=== PATIENT | female | born 1985 ===

== ENCOUNTER → 2017-03-26 | Outpatient (CLI) | payer BC ==
[2017-04-03 18:05] LABS: HPV 16 RNA NOT DETECTED (NOT DETECTED); HPV 18 45 RNA NOT DETECTED (NOT DETECTED)
== END | disposition home or self-care (01) ==
LOC: C.PAPS 09:50
PROVIDERS: ATTEND Physician Assistant
DX: Z01.419 Encounter for gynecological examination (general) (routine) without abnormal findings (principal)

== ENCOUNTER 2019-03-11 07:45 | Inpatient (IN) ==
[2019-03-11] MEDS ORDERED: PENICILLIN G POTASSIUM 6 MU in DEXTROSE 5% 250 ML IV STA (08:03)
[2019-03-11] MEDS ORDERED: OXYTOCIN 30 UNITS/500 ML BAG IV PRN ×2 (08:03→08:13)
--- NOTE | 2019-03-11 08:24 | History & Physical Report ---
Date of Service March 11, 2019 Assessment & Plan (1) Post-term , 40-42 weeks of gestation: 34 year old at 40 weeks and 6 days here for induction of labor for post dates * Vital signs reviewed WNL * Patient with reassuring FHT * Rosenthal bulb inserted last night has fallen into vagina today, removed from vagina and on cervical exam /-1 * Pitocin induction started per protocol * Bloody type AB+, Rubella immune * GBS + no drug allergies, giving penicillin * NPO * Anticipate History of Present Illness Primary Care Provider: NO PCP Akila James is a 34 year old who is here for induction of labor at 40 weeks 6 days for post dates. She tells me she started to feel more painful spaced contractions about 10 minutes apart last night after placement of rosenthal b ulb, but she had not been experiencing contractions prior to that. She has consistently felt good movement, has not noted any vaginal bleeding or fluid loss until last night, after placement of rosenthal bulb she noted small amount of vaginal bleeding. She denies any headache, vision changes or swelling of hands or feet. This is her first , it has been complicated by being GBS positive and GERD. She has been taking prilosec, vitamins and iron this . Blood type is AB+, Patient is GBS +, Rubella Immune. All other serologic testing normal. At last appointment yesterday patient was found to be closed 80% effaced and -2 station on cervical exam. On review of systems, patient has no fevers, chills, difficulty breathing, chest pain, edema, abdominal pain, nausea or vomiting, headache, or visual disturbances. Akila tells me she has no major medical history and takes no medication outside of . She does not smoke cigarettes, use alcohol, or use any other recreational drugs. She lives with her the father of the baby here in [place] and is a track repair worker. No other questions or concerns Allergies Allergy/AdvReac Type Severity Reaction Status Date / Time No Known Allergies Allergy Verified 03/11/19 08:20 Home Medications Home Medications Medication Instructions Recorded Confirmed Type ferrous sulfate [iron] 325 mg PO DAILY 03/10/19 03/11/19 History omeprazole magnesium [Prilosec] 10 mg PO DAILY 03/10/19 03/11/19 History vit no.[id number] 1 tab PO DAILY 03/10/19 03/11/19 History [ Vitamin] Patient History Medical History H/O wisdom tooth extraction Social History Preferred Language: Norwegian Communication Ability: Effective Beliefs That Will Affect Care: None marital status: Current Living Situation: Spouse Other Information That Helps Us Care for You: No Feels Safe at Home: Yes Safety Concerns: Feels Safe At This Time Smoking Status: Never smoker Hx Alcohol Use: No Hx Substance Use: No Physical Exam Constitutional: well developed and well nourished; no acute distress Respiratory: normal respiratory effort, lungs clear to auscultation Cardiovascular: Rate/Rhythm: regular rate and regular rhythm Extremities: + edema (very mild pedal edema); no calf tenderness Gastrointestinal (Abdomen): Gravid uterus distending abdomen, soft (around uterus) and nontender Skin: no rashes, warm and dry Neurologic: Brisk reflexes bilaterally Genitourinary: On pelvic exam rosenthal balloon was found to be resting in vagina. Balloon deflated and removed, cervical check showed 4 cm dilation, 75% effaced, and -1 station. Results & Data Vital Signs (Past 12 Hours) Vital Signs Temp Pulse Resp BP 03/11/19 07:56 36.5 C 78 20 116/73 Supervising Physician Co-Signing Physician Notes Resident Physician Supervision Note: I was present with Dr. Sams during the history and exam. I discussed the case with the resident and agree with the findings and plan as documented in the note. Any exceptions or clarifications are listed here: will start pit, efw 7- 8#. fhts categ 1. gbs pos, start pcn. Documented By: Marta Walsh MD, FACOG Resident Activity Tracking Resident Involvement: Resident Care Provided Care Provided: OB Delivery
[2019-03-11 08:32] LABS: Hematocrit (blood only) 34.5 % (37-47); Hemoglobin 12.3 g/dL (12.0-16.0); Mean Corpuscular Volume 92.5 fL (80-100); Mean Platelet Volume 9.1 fL (7.4-10.4); Platelet Count 192 K/uL (130-400); RDW Coefficient of Variation 12.8 % (11.5-14.5); RDW Standard Deviation 43.4 fL (36.4-46.3); Red Blood Count 3.73 M/uL (4.2-5.4); White Blood Count 11.87 K/uL (4.8-10.8)
[2019-03-11] MEDS: LACTATED RINGER'S 1,000 ML IV PRN ×2 (08:42→12:47)
[2019-03-11 09:01] LABS: Mean Corpuscular Hgb Conc 35.7 g/dL (32-36)
[2019-03-11] MEDS ORDERED: PENICILLIN G POTASSIUM 3 MU in DEXTROSE 5% 100 ML IV PRN (12:00)
[2019-03-11] MEDS ORDERED: BUPIVACAINE 0.25% 30 ML VIAL ONE (12:07)
[2019-03-11] MEDS ORDERED: ePHEDrine sulfate 50 MG/ML AMP ONE (12:07)
[2019-03-11] MEDS ORDERED: fentaNYL citrate 100 MCG/2 ML VIAL ONE (12:08)
[2019-03-11] MEDS ORDERED: fentaNYL 2MCG/ML ROPIV 1.25MG/ML 100 ML BAG EPI ONE (12:08)
--- NOTE | 2019-03-11 12:41 | Anesthesiology Consultation ---
Date of Service March 11, 2019 Assessment & Plan (1) Encounter for pre-operative examination: Chart Review Chart Review: Patient NOT seen in Pre Admission Testing and Acceptable Risk for Labor Epidural Consults Requested none ASA ASA2 Proposed Anesthesia Anesthesia Type: Labor Epidural Risk / Benefits Reviewed With: PT / POA / Parent / Guardian, Accepts Plan and Informed Consent Obtained History Height/Weight Height: 5 ft 5 in Weight: 74.843 kg Allergies Allergy/AdvReac Type Severity Reaction Status Date / Time No Known Allergies Allergy Verified 03/11/19 08:20 Medications Home Medications Medication Instructions Recorded Confirmed Last Taken ferrous sulfate [iron] 325 mg PO DAILY 03/10/19 03/11/19 03/09/19 22:00 omeprazole magnesium [Prilosec] 10 mg PO DAILY 03/10/19 03/11/19 03/11/19 06:00 vit no.[id number] 1 tab PO DAILY 03/10/19 03/11/19 03/09/19 22:00 [ Vitamin] Active Medications Generic Name Dose Route Start Last Admin Trade Name Freq PRN Reason Stop Dose Admin Lactated Ringer's 1,000 mls @ 125 mls/hr 03/11/19 08:03 03/11/19 12:47 Lr IV 03/13/19 08:02 125 mls/hr .Q8H PRN Administration L&D Protocol Protocol Oxytocin 30 units in 500 mls @ 7 mls/hr 03/11/19 08:13 03/11/19 12:00 Pitocin IV 03/13/19 08:12 0.42 units/hr .Q24H PRN 7 mls/hr Labor Induction/Augmentation Titration Protocol 0.42 UNITS/HR NPO Date Last Intake of Fluids: 03/11/19 Time Last Intake of Fluids: 13:08 Date Last Intake of Solids: 03/11/19 Time Last Intake of Solids: 07:30 Past Medical History Medical History H/O gastroesophageal reflux (GERD) Scoliosis Exercise / Class Metabolic Activity II 4-5 Yardwork/Stairs/Walk up hill Past Surgical History Surgical History H/O wisdom tooth extraction Past Anesthesia History No Hx of Anesthesia Complications History of PONV No Hx of PONV and No Hx of Motion Sickness Social History Smoking Status: Never smoker Hx Alcohol Use: No Hx Substance Use: No Review of Systems Patient denies active symptoms of GERD. Patient denies numbness, tingling or weakness in lower extremities. Patient denies history of abnormal bleeding or bleeding disorder. Patient denies active use of anticoagulants other than low dose aspirin. Physical Exam Vital Signs Last Vital Signs Temp 36.8 C 03/11/19 11:11 Pulse 81 03/11/19 13:05 Resp 20 03/11/19 11:11 BP 109/56 L 03/11/19 13:05 Pulse Ox 98 03/11/19 13:02 Constitutional not obese gravid uterus ENMT Mouth: no TMJ abnormality and oral opening not small Thyromental Distance: > or= 3.5 Finger Breadths Mallampati Class: II Neck normal visual inspection; neck extension not limited Respiratory normal respiratory effort Auscultation: lungs clear to auscultation bilaterally Cardiovascular Rate/Rhythm: regular rate and regular rhythm Heart Sounds: no murmur Neurologic moves all extremities Motor/Sensory: no sensory deficit Psychiatric Orientation: alert and oriented x 3 Testing Laboratory Results 03/11/19 08:20
[2019-03-11] MEDS ORDERED: NALBUPHINE HCL INJ 10 MG/ML AMP IV PRN ×2 (13:11→17:57)
[2019-03-11] MEDS ORDERED: ePHEDrine sulfate 50 MG/ML AMP IV PRN ×2 (13:11→17:57)
[2019-03-11] MEDS ORDERED: NALOXONE HCL 0.4 MG/1 ML VIAL/CARP IV PRN ×2 (13:11→17:57)
[2019-03-11] MEDS ORDERED: ONDANSETRON INJ 2 MG/ML 2 ML VIAL IV PRN ×2 (13:11→17:57)
[2019-03-11] MEDS ORDERED: fentaNYL 2MCG/ML ROPIV 1.25MG/ML 100 ML BAG EPI PRN (13:11)
[2019-03-11] MEDS ORDERED: DiphenhydrAMINE HCL 50 MG/ML VIAL IV PRN ×2 (13:11→17:57)
[2019-03-11] MEDS ORDERED: NALOXONE HCL 1 MG in SODIUM CHLORIDE 0.9% 1000ML 1,000 ML IV PRN ×2 (13:11→17:57)
--- NOTE | 2019-03-11 14:06 | Labor Progress Brief Note ---
Date of Service March 11, 2019 Subjective CTSP secondary to decels. Has had epidural about 50 min. Had been flipped, pit off, fluid bolus and oxygen. Assessment & Plan (1) Post-term , 40-42 weeks of gestation: Baby has recovered and now just having variable/early with contractions. Will continue to monitor closely. Could consider amnioinfusion if variables persistent/deep. Physical Exam Constitutional: WD/WN, vitals as above Genitourinary: cx--5/90/-2 arom--min clear toco--q1-3min, pit was at 7, off now efm--was having decels in 80s that have resolved to having variables with contractions, baseline of 130s, mod variability, +scalp stim. Results & Data Vital Signs (Past 12 Hours) Vital Signs Temp Pulse Resp BP Pulse Ox 03/11/19 14:02 70 100 03/11/19 13:58 68 103/57 L 03/11/19 13:57 69 100 03/11/19 13:53 72 89/53 L 03/11/19 13:52 74 100 03/11/19 13:47 77 112/68 99 03/11/19 13:42 75 104/61 96 03/11/19 13:38 76 110/65 03/11/19 13:37 79 97 03/11/19 13:32 69 103/57 L 96 03/11/19 13:27 74 106/60 97 03/11/19 13:22 83 105/61 98 03/11/19 13:17 83 112/58 L 97 03/11/19 13:15 90 107/58 L 03/11/19 13:13 83 112/56 L 03/11/19 13:12 86 97 03/11/19 13:11 84 110/56 L 03/11/19 13:09 86 114/59 L 03/11/19 13:07 86 111/56 L 97 03/11/19 13:05 81 109/56 L 03/11/19 13:03 84 111/57 L 03/11/19 13:02 84 98 03/11/19 13:01 88 119/64 03/11/19 12:59 88 20 128/75 03/11/19 12:57 83 127/73 97 03/11/19 12:52 69 100 03/11/19 12:47 80 97 03/11/19 12:42 69 100 03/11/19 11:11 36.8 C 58 L 20 141/83 H 03/11/19 10:16 56 L 125/77 03/11/19 09:10 79 118/69 03/11/19 08:08 36.5 C 78 20 116/73 03/11/19 07:56 36.5 C 78 20 116/73
[2019-03-11] MEDS ORDERED: CITRIC ACID/SODIUM CITRATE 15 ML UDC ONE (15:56)
[2019-03-11] MEDS ORDERED: LIDOCAINE/EPINEPHRINE 2% 1:200,000 20 ML SDV ONE (15:57)
[2019-03-11] MEDS ORDERED: CEFAZOLIN 2000MG 2,000 MG/15 ML SYR IV SCH (16:00)
[2019-03-11] MEDS ORDERED: LACTATED RINGER'S 1,000 ML IV SCH ×3 (16:00→21:24)
[2019-03-11] MEDS ORDERED: CITRIC ACID/SODIUM CITRATE 15 ML UDC PO SCH (16:00)
--- NOTE | 2019-03-11 16:03 | Labor Progress Brief Note ---
Date of Service March 11, 2019 Subjective comfortable Assessment & Plan (1) Non-reassuring electronic monitoring tracing: long decel that took a long time to recover. Baby had been having early/variables. this is the second time this has occurred. Contractions feel strong and baby really pushes down with contraction. We are still quite far from delivery. No change in the last 2 hours. Concern for tolerance of labor. discussed situation with patient and so. Recommend c/s at this point. They are agreeable. consent reviewed and signed. r/b/se discussed. Physical Exam 2 Genitourinary: cx--/-2 toco--q2-3min, pit now off, was only at 2 efm--now 125, had a likely 8min decel to the 70s, finally resolved with position change, o2, bolus Results & Data Vital Signs (Past 12 Hours) Vital Signs Temp Pulse Resp BP Pulse Ox 03/11/19 15:52 80 100 03/11/19 15:47 83 100 03/11/19 15:43 75 110/58 L 03/11/19 15:42 65 97 03/11/19 15:37 68 98 03/11/19 15:32 69 98 03/11/19 15:28 64 102/61 03/11/19 15:27 66 97 03/11/19 15:22 65 97 03/11/19 15:17 67 98 03/11/19 15:13 70 103/57 L 03/11/19 15:12 73 97 03/11/19 15:07 70 99 03/11/19 15:02 68 97 03/11/19 15:00 36.9 C 20 03/11/19 14:59 72 97/54 L 03/11/19 14:57 67 98 03/11/19 14:52 65 97 03/11/19 14:47 66 97 03/11/19 14:42 67 104/55 L 97 03/11/19 14:37 65 100 03/11/19 14:32 65 100 03/11/19 14:31 20 03/11/19 14:27 62 101/57 L 100 03/11/19 14:22 64 100 03/11/19 14:17 65 100 03/11/19 14:16 20 03/11/19 14:14 66 99/55 L 03/11/19 14:12 66 100 03/11/19 14:07 72 100 03/11/19 14:02 70 100 03/11/19 14:01 20 03/11/19 13:58 68 103/57 L 03/11/19 13:57 69 100 03/11/19 13:53 72 89/53 L 03/11/19 13:52 74 100 03/11/19 13:47 77 20 112/68 99 03/11/19 13:42 75 104/61 96 03/11/19 13:38 76 110/65 03/11/19 13:37 79 97 03/11/19 13:32 69 103/57 L 96 03/11/19 13:31 36.8 C 20 03/11/19 13:27 74 106/60 97 03/11/19 13:22 83 105/61 98 03/11/19 13:17 83 112/58 L 97 03/11/19 13:16 20 03/11/19 13:15 90 107/58 L 03/11/19 13:13 83 112/56 L 03/11/19 13:12 86 97 03/11/19 13:11 84 110/56 L 03/11/19 13:09 86 114/59 L 03/11/19 13:07 86 111/56 L 97 03/11/19 13:05 81 109/56 L 03/11/19 13:03 84 111/57 L 03/11/19 13:02 84 98 03/11/19 13:01 88 119/64 03/11/19 12:59 88 20 128/75 03/11/19 12:57 83 127/73 97 03/11/19 12:52 69 100 03/11/19 12:47 80 97 03/11/19 12:42 69 100 03/11/19 11:11 36.8 C 58 L 20 141/83 H 03/11/19 10:16 56 L 125/77 03/11/19 09:10 79 118/69 03/11/19 08:08 36.5 C 78 20 116/73 03/11/19 07:56 36.5 C 78 20 116/73
[2019-03-11] MEDS ORDERED: OXYTOCIN 10 UNITS/ML VIAL ONE ×3 (16:26→16:45)
[2019-03-11] MEDS ORDERED: MoRPHine SULFATE PF 1 MG/ML 10 ML AMP/VIAL ONE (16:31)
[2019-03-11] MEDS ORDERED: PHENYLEPHRINE 100MCG/ML 5ML SYR ONE (16:41)
[2019-03-11] MEDS ORDERED: ONDANSETRON INJ 2 MG/ML 2 ML VIAL ONE (16:41)
--- NOTE | 2019-03-11 16:57 | Post Operative Brief Note ---
Immediate Post Op Note v1 Date of Surgery March 11, 2019 Pre & Post Diagnosis Operation Date: 03/11/19 16:00 Pre-Op Diagnosis: INDUCTION- intolerance to labor- post dates Post-Op Diagnosis: INDUCTION- intolerance to labor- post dates - with delivery of living female child at 1629 Procedure Operation Date: 03/11/19 16:00 Actual Procedures p Primary low transverse Section in LD(Bilateral) - Akila Chris MD, FACOG Surgeon Akila Chris MD, FACOG Transmitter Engineer In Charge Dr. Caldwell Estimated Blood Loss 700 Findings Consistent with Post-Op Diagnosis Drains Alvarado Catheter
[2019-03-11] MEDS ORDERED: OXYTOCIN 20 UNITS in LACTATED RINGER'S 1,000 ML IV SCH (17:15)
[2019-03-11] MEDS ORDERED: MoRPHine SULFATE PF 1 MG/ML 10 ML AMP/VIAL INT SPINAL ONE (17:57)
[2019-03-11] MEDS ORDERED: HYDROmorphone INJ 0.5 MG/0.5 ML SYR IV PRN (17:57)
[2019-03-11] MEDS ORDERED: NALOXONE HCL 0.08 MG in SYRINGE 1.8 ML IV PRN (17:57)
[2019-03-11] MEDS ORDERED: LACTATED RINGER'S 500 ML IV PRN (17:57)
[2019-03-11] MEDS ORDERED: SODIUM CHLORIDE 0.9% 1000ML 1,000 ML IV SCH (18:00)
[2019-03-11] MEDS ORDERED: NO NARCOTICS OR SEDATIVES SCH (18:00)
[2019-03-11] MEDS: KETOROLAC 30 MG/ML VIAL IV PRN (18:15)
--- NOTE | 2019-03-11 18:35 | Anesthesia Procedure Note ---
Date of Service March 11, 2019 Anesthesia Post Epidural Note Vital Signs Vital Signs: Temp Pulse Resp BP Pulse Ox 03/11/19 18:32 68 98 03/11/19 18:31 68 112/63 03/11/19 18:27 68 98 03/11/19 18:22 72 98 03/11/19 18:21 67 112/67 03/11/19 18:17 69 97 03/11/19 18:12 74 97 03/11/19 18:11 69 113/65 03/11/19 18:10 20 03/11/19 18:07 73 96 03/11/19 18:02 74 97 03/11/19 18:01 75 108/57 L 03/11/19 18:00 22 03/11/19 17:57 74 96 03/11/19 17:52 78 96 03/11/19 17:51 79 105/56 L 03/11/19 17:50 20 03/11/19 17:47 79 96 03/11/19 17:42 83 95 03/11/19 17:41 82 110/65 03/11/19 17:40 20 03/11/19 17:37 81 96 03/11/19 17:32 81 96 03/11/19 17:31 80 106/58 L 03/11/19 17:27 80 95 03/11/19 17:22 75 95 03/11/19 17:20 36.6 C 73 22 100/55 L 03/11/19 17:17 72 94 03/11/19 17:15 76 104/55 L 03/11/19 17:12 76 93 03/11/19 17:10 79 18 94 03/11/19 17:07 81 95 03/11/19 17:06 82 101/59 L 03/11/19 17:03 82 108/55 L 03/11/19 17:02 82 96 03/11/19 16:07 81 100 03/11/19 16:02 78 100 03/11/19 15:58 78 123/72 03/11/19 15:57 78 100 03/11/19 15:52 80 100 03/11/19 15:47 83 100 03/11/19 15:43 75 110/58 L 03/11/19 15:42 65 97 03/11/19 15:37 68 98 03/11/19 15:32 69 98 05/29/19 15:30 18 03/11/19 15:28 64 102/61 03/11/19 15:27 66 97 03/11/19 15:22 65 97 03/11/19 15:17 67 98 03/11/19 15:13 70 103/57 L 03/11/19 15:12 73 97 03/11/19 15:07 70 99 03/11/19 15:02 68 97 03/11/19 15:00 36.9 C 20 03/11/19 14:59 72 97/54 L 03/11/19 14:57 67 98 03/11/19 14:52 65 97 03/11/19 14:47 66 97 03/11/19 14:42 67 104/55 L 97 03/11/19 14:37 65 100 03/11/19 14:32 65 100 03/11/19 14:31 20 03/11/19 14:27 62 101/57 L 100 03/11/19 14:22 64 100 03/11/19 14:17 65 100 03/11/19 14:16 20 03/11/19 14:14 66 99/55 L 03/11/19 14:12 66 100 03/11/19 14:07 72 100 03/11/19 14:02 70 100 03/11/19 14:01 20 03/11/19 13:58 68 103/57 L 03/11/19 13:57 69 100 03/11/19 13:53 72 89/53 L 03/11/19 13:52 74 100 03/11/19 13:47 77 20 112/68 99 03/11/19 13:42 75 104/61 96 03/11/19 13:38 76 110/65 03/11/19 13:37 79 97 03/11/19 13:32 69 103/57 L 96 03/11/19 13:31 36.8 C 20 03/11/19 13:27 74 106/60 97 03/11/19 13:22 83 105/61 98 03/11/19 13:17 83 112/58 L 97 03/11/19 13:16 20 03/11/19 13:15 90 107/58 L 03/11/19 13:13 83 112/56 L 03/11/19 13:12 86 97 03/11/19 13:11 84 110/56 L 03/11/19 13:09 86 114/59 L 03/11/19 13:07 86 111/56 L 97 03/11/19 13:05 81 109/56 L 03/11/19 13:03 84 111/57 L 03/11/19 13:02 84 98 03/11/19 13:01 88 119/64 03/11/19 12:59 88 20 128/75 03/11/19 12:57 83 127/73 97 03/11/19 12:52 69 100 03/11/19 12:47 80 97 03/11/19 12:42 69 100 03/11/19 11:11 36.8 C 58 L 20 141/83 H 03/11/19 10:16 56 L 125/77 03/11/19 09:10 79 118/69 03/11/19 08:08 36.5 C 78 20 116/73 03/11/19 07:56 36.5 C 78 20 116/73 Pain Intensity Abdomen: Pain Intensity: 5 Notes Mental Status: alert / awake / arousable and participated in evaluation Nausea / Vomiting: adequately controlled Pain: adequately controlled Airway Patency, RR, SpO2: stable & adequate BP & HR: stable & adequate Hydration State: stable & adequate Neuraxial Anesthesia: was administered and sensory block is resolving Anesthetic Complications: no major complications apparent and Pt Satisfied with anesthetic care Epidural: Removed without complications and With tip intact
--- NOTE | 2019-03-11 18:43 | Anesthesiology Progress Note ---
Date of Service March 11, 2019 Anesthesia Post Procedure Vital Signs Vital Signs: Temp Pulse Resp BP Pulse Ox 03/11/19 18:42 74 98 03/11/19 18:41 75 116/73 03/11/19 18:37 68 98 03/11/19 18:32 68 98 03/11/19 18:31 68 112/63 03/11/19 18:27 68 98 03/11/19 18:22 72 98 03/11/19 18:21 67 112/67 03/11/19 18:17 69 97 03/11/19 18:12 74 97 03/11/19 18:11 69 113/65 03/11/19 18:10 20 03/11/19 18:07 73 96 03/11/19 18:02 74 97 03/11/19 18:01 75 108/57 L 03/11/19 18:00 22 03/11/19 17:57 74 96 03/11/19 17:52 78 96 03/11/19 17:51 79 105/56 L 03/11/19 17:50 20 03/11/19 17:47 79 96 03/11/19 17:42 83 95 03/11/19 17:41 82 110/65 03/11/19 17:40 20 03/11/19 17:37 81 96 03/11/19 17:32 81 96 03/11/19 17:31 80 106/58 L 03/11/19 17:27 80 95 03/11/19 17:22 75 95 03/11/19 17:20 36.6 C 73 22 100/55 L 03/11/19 17:17 72 94 03/11/19 17:15 76 104/55 L 03/11/19 17:12 76 93 03/11/19 17:10 79 18 94 03/11/19 17:07 81 95 03/11/19 17:06 82 101/59 L 03/11/19 17:03 82 108/55 L 03/11/19 17:02 82 96 03/11/19 16:07 81 100 03/11/19 16:02 78 100 03/11/19 15:58 78 123/72 03/11/19 15:57 78 100 03/11/19 15:52 80 100 03/11/19 15:47 83 100 03/11/19 15:43 75 110/58 L 03/11/19 15:42 65 97 03/11/19 15:37 68 98 03/11/19 15:32 69 98 03/11/19 15:30 18 03/11/19 15:28 64 102/61 03/11/19 15:27 66 97 03/11/19 15:22 65 97 03/11/19 15:17 67 98 03/11/19 15:13 70 103/57 L 03/11/19 15:12 73 97 03/11/19 15:07 70 99 03/11/19 15:02 68 97 03/11/19 15:00 36.9 C 20 03/11/19 14:59 72 97/54 L 03/11/19 14:57 67 98 03/11/19 14:52 65 97 03/11/19 14:47 66 97 03/11/19 14:42 67 104/55 L 97 03/11/19 14:37 65 100 03/11/19 14:32 65 100 03/11/19 14:31 20 03/11/19 14:27 62 101/57 L 100 03/11/19 14:22 64 100 03/11/19 14:17 65 100 03/11/19 14:16 20 03/11/19 14:14 66 99/55 L 03/11/19 14:12 66 100 03/11/19 14:07 72 100 03/11/19 14:02 70 100 03/11/19 14:01 20 03/11/19 13:58 68 103/57 L 03/11/19 13:57 69 100 03/11/19 13:53 72 89/53 L 03/11/19 13:52 74 100 03/11/19 13:47 77 20 112/68 99 03/11/19 13:42 75 104/61 96 03/11/19 13:38 76 110/65 03/11/19 13:37 79 97 03/11/19 13:32 69 103/57 L 96 03/11/19 13:31 36.8 C 20 03/11/19 13:27 74 106/60 97 03/11/19 13:22 83 105/61 98 03/11/19 13:17 83 112/58 L 97 03/11/19 13:16 20 03/11/19 13:15 90 107/58 L 03/11/19 13:13 83 112/56 L 03/11/19 13:12 86 97 03/11/19 13:11 84 110/56 L 03/11/19 13:09 86 114/59 L 03/11/19 13:07 86 111/56 L 97 03/11/19 13:05 81 109/56 L 03/11/19 13:03 84 111/57 L 03/11/19 13:02 84 98 03/11/19 13:01 88 119/64 03/11/19 12:59 88 20 128/75 03/11/19 12:57 83 127/73 97 03/11/19 12:52 69 100 03/11/19 12:47 80 97 03/11/19 12:42 69 100 03/11/19 11:11 36.8 C 58 L 20 141/83 H 03/11/19 10:16 56 L 125/77 03/11/19 09:10 79 118/69 03/11/19 08:08 36.5 C 78 20 116/73 03/11/19 07:56 36.5 C 78 20 116/73 Pain Intensity Abdomen: Pain Intensity: 5 Transfer of Care Handoff Completed per policy Notes Mental Status: alert / awake / arousable and participated in evaluation Nausea / Vomiting: adequately controlled Pain: adequately controlled Airway Patency, RR, SpO2: stable & adequate BP & HR: stable & adequate Hydration State: stable & adequate Neuraxial Anesthesia: was administered and sensory block is resolving Anesthetic Complications: no major complications apparent and Pt Satisfied with anesthetic care
[2019-03-11] MEDS ORDERED: BENZOCAINE 20% AER SPR 82.5 GM CAN EXT PRN (21:24)
[2019-03-11] MEDS ORDERED: SENNA 8.6 MG TAB PO PRN (21:24)
[2019-03-11] MEDS ORDERED: DIPHTHERIA/TETANUS/PERTUSSIS 0.5 ML SYR/VIAL IM ONE (21:24)
[2019-03-11] MEDS ORDERED: PROMETHAZINE HCL 25 MG in SODIUM CHLORIDE 0.9% 50 ML IV PRN (21:24)
[2019-03-11] MEDS ORDERED: HYDROCORTISONE ACETATE 25 MG SUPP PR PRN (21:24)
[2019-03-11] MEDS ORDERED: SUPERCREAM 0.870% 15 GM JAR EXT PRN (21:24)
[2019-03-11] MEDS ORDERED: MAGNESIUM HYDROXIDE SUSP 30 ML UDC PO PRN (21:24)
--- NOTE | 2019-03-11 22:30 | Operative Report ---
DATE OF OPERATION: 03/11/2019 PREOPERATIVE DIAGNOSES: 1. Intrauterine at 40+ weeks. 2. Postdates induction. DISCHARGE DIAGNOSES: 1. Intrauterine at 40+ weeks. 2. Postdates induction. 3. intolerance of labor. PROCEDURES: 1. Epidural anesthesia. 2. Amniotomy. 3. Primary low transverse section. SURGEON: Akila Chris MD ANESTHESIA: Epidural. ESTIMATED BLOOD LOSS: 700 mL INDICATIONS: The patient is a 1, para 0 who presented for postdates induction. She had a category 1 strip on admission and underwent an epidural anesthetic when she was 4-5 cm. After the epidural anesthetic, the patient had variable/early decelerations and had 2 periods of a prolonged deceleration lasting at least 8 minutes. This happened well after dosing of her epidural. We resuscitated the baby x2 successfully, but the cervix was unchanged and decided we were too remote from delivery and the fetus was not tolerating the contractions that mom was having so we decided to proceed with section. FINDINGS: At the time of surgery revealed normal uterus, tubes, and ovaries bilaterally. Viable female infant in occiput transverse presentation to the left. No nuchal cord was noted. Clear fluid was noted on hysterotomy incision. Apgars were 9 and 9. Weight is pending. COMPLICATIONS: None. DRAINS: Alvarado. DISPOSITION: To recovery room in stable condition. PROCEDURE IN DETAIL: The patient was taken the operating room. She was identified verbally and by bracelet. She was transferred to the operating table where she was placed in the supine position with leftward tilt. A Alvarado catheter had previously been placed. Her epidural was dosed. She was prepped and draped in normal sterile fashion. Her epidural was tested and found to be adequate. A time-out was held, identifying correct patient, procedure, positioning, and preoperative antibiotic. A Pfannenstiel skin incision was made with a knife, taken down to the underlying layer of fascia with the knife. Bleeding was attended to with Bovie electrocautery. The fascia was incised in the midline with cautery and taken out laterally with scissors. The superior edge of the fascial incision was grasped, elevated, and the underlying layer of rectus muscle was taken off bluntly and with scissors. In a similar fashion, the inferior edge of the fascial incision was grasped, elevated, and underlying layer of rectus muscle was taken off bluntly and with scissors. The muscles were bluntly in the midline. The peritoneum was entered bluntly in a high position and the cutter operator tile's hands were placed into the abdomen. The incision was stretched. The bladder blade was placed. The bladder flap was created by incising with scissors taking out laterally and the bladder flap was created digitally. Hysterotomy incision was scored with a knife. The uterus was entered with a snap. Clear fluid was noted. The incision was stretched with the cutter operator tile's fingers. The cutter operator tile's hand was gently placed into the uterus. The head was removed by releasing suction and was gently placed through the hysterotomy incision. The nose and mouth were bulb suctioned. There was no nuchal cord. The rest of the infant was then delivered without difficulty. The baby was vigorous on the operative field. The cord was clamped and cut. The infant was handed off to the awaiting marketing automation manager for drying and attention. Cord blood and segment were obtained. Placenta was manually extracted. The uterus was cleared of all clot and debris with moistened laparotomy sponges. The hysterotomy incision was repaired in 2 layers, the first a running locked layer, the second in an imbricating layer. Several [id number] sutures were needed for hemostasis. Posterior cul-de-sac was irrigated and cleared of all clot and debris. The hysterotomy incision was again inspected and found to be hemostatic. The uterus was replaced into the uterus. The hysterotomy incision was again inspected and found to be hemostatic. The muscles were approximated in the midline with 3 interrupted sutures of 0 Vicryl. The fascia was then reapproximated starting at the edges meeting in the midline with 0 Vicryl. The subcuticular tissue was noted to be hemostatic and the skin was closed with 4-0 subcuticular stitch. All sponge, lap, and needle counts were correct x2. The patient tolerated the procedure well and the patient was taken to recovery room in stable condition. I attest to the content of the Intraoperative Record and any orders documented therein. Any exception s are noted below.
[2019-03-12] MEDS: KETOROLAC 30 MG/ML VIAL IV PRN ×2 (04:28→10:58)
[2019-03-12 06:38] LABS: Hematocrit (blood only) 31.6 % (37-47); Hemoglobin 11.2 g/dL (12.0-16.0); Mean Corpuscular Hgb Conc 35.4 g/dL (32-36); Mean Corpuscular Volume 92.7 fL (80-100); Mean Platelet Volume 8.9 fL (7.4-10.4); Platelet Count 160 K/uL (130-400); RDW Coefficient of Variation 12.9 % (11.5-14.5); RDW Standard Deviation 43.5 fL (36.4-46.3); Red Blood Count 3.41 M/uL (4.2-5.4); White Blood Count 12.89 K/uL (4.8-10.8)
[2019-03-12 07:05] LABS: Basophils # (auto) 0.01 K/uL (0-0.2); Basophils % (auto) 0.1 %; Eosinophils # (auto) 0.04 K/uL (0-0.5); Eosinophils % (auto) 0.3 %; Immature Granulocytes # (auto) 0.04 K/uL (0.00-0.02); Immature Granulocytes % (auto) 0.3 %; Lymphocytes # (auto) 1.27 K/uL (1.2-3.4); Lymphocytes % (auto) 9.9 %; Monocytes # (auto) 0.63 K/uL (0.11-0.59); Monocytes % (auto) 4.9 %; Neutrophils % (auto) 84.5 %
--- NOTE | 2019-03-12 07:06 | Obstetrical Progress Note ---
Date of Service <Shaq Hardin MD - Last Filed: 03/12/19 07:06> March 12, 2019 Assessment & Plan <Shaq Hardin MD - Last Filed: 03/12/19 07:06> (1) delivery delivered: 34 year old day 1 s/p C/S at 40 weeks 6 days for non reassuring heart tones during induction of labor for post dates. Vital Signs Reviewed and WNL Pain well controlled, incision clean dry and intact Hemoglobin 12.3 pre op; 11.2 this morning Blood type A+, GBS -, Rubella Immune Will pull rosenthal today and monitor spontaneous voiding, passing of gas, and ambulation Breast feeding going well so far encouraged to continue Subjective <Shaq Hardin MD - Last Filed: 03/12/19 07:06> Ambulation: limited ambulation (Yet to ambulate) Voiding: rosenthal catheter in place Passing Gas:: No Diet Tolerance:: clear liquids Lochia:: Small Feeding Type:: breast feeding Current Pain Level(1-10): 4 Ms. James feels she is doing well so far, baby has been feeding very well in first day of life. She still has her rosenthal in so she has not been up and to bathroom yet. No other concerns at this time. Constitutional: no fever and no chills Respiratory: no cough and no dyspnea Cardiovascular: no chest pain, no dyspnea and no calf pain Gastrointestinal: no nausea and no vomiting Physical Exam <Shaq Hardin MD - Last Filed: 03/12/19 07:06> Vital Signs (Past 24 Hours) Last Vital Signs Temp 37.1 C 03/12/19 04:15 Pulse 76 03/12/19 04:15 Resp 20 03/12/19 06:20 BP 101/63 03/12/19 04:15 Pulse Ox 98 03/12/19 06:20 Constitutional well developed, well nourished, cooperative and comfortable; no acute distress Respiratory normal respiratory effort, lungs clear to auscultation Cardiovascular Rate/Rhythm: regular rate and regular rhythm Extremities: + edema (very mild pedal edema); no calf tenderness Gastrointestinal (Abdomen) Percussion/Palpation: + abdomen tender (Tender around incision) and abdomen soft (Around uterus) Skin no rashes, warm and dry Genitourinary OB Exam Abdomen: + fundal height (Uterus firm/nontender at level of umbilicus) <Akila Chris MD, FACOG - Last Filed: 03/12/19 07:07> Co-Signing Physician Notes Resident Physician Supervision Note: I interviewed and examined the patient. Discussed with Dr. Paige and agree with findings and plan as documented in the note. Any exceptions or clarifications are listed here: Doing well. routine PPD/POD care. Documented By: Akila Chris MD, FACOG Resident Activity Tracking <Shaq Hardin MD - Last Filed: 03/12/19 07:06> Resident Involvement: Resident Care Provided Care Provided: OB Delivery
[2019-03-12] MEDS: SIMETHICONE 80 MG CHEW PO SCH ×4 (10:59→22:34)
[2019-03-12] MEDS: DOCUSATE SODIUM 100 MG CAP PO SCH ×2 (11:00→22:34)
[2019-03-12] MEDS: PRENATAL VITAMIN 1 TAB PO SCH (11:00)
[2019-03-12] MEDS: FERROUS SULFATE 325 MG TAB PO SCH (11:00)
[2019-03-12] MEDS ORDERED: MEPERIDINE HCL 50 MG/ML CARP IV PRN (11:57)
[2019-03-12] MEDS ORDERED: DC INTRASPINAL MORPHINE ONE (11:57)
[2019-03-12] MEDS ORDERED: DiphenhydrAMINE HCL 50 MG/ML VIAL IV PRN (11:57)
[2019-03-12] MEDS ORDERED: ONDANSETRON INJ 2 MG/ML 2 ML VIAL IV PRN (11:57)
[2019-03-12] MEDS ORDERED: KETOROLAC 30 MG/ML VIAL IV PRN (11:57)
[2019-03-12] MEDS: OXYCODONE/ACETAMINOPHEN 5mg/325mg TAB PO PRN ×2 (13:59→18:53)
--- NOTE | 2019-03-12 15:55 | Anesthesiology Progress Note ---
Date of Service March 12, 2019 Anesthesia Post Procedure Vital Signs Vital Signs: Temp Pulse Pulse Pulse Resp BP BP 03/12/19 12:35 36.9 C 83 18 111/65 03/12/19 11:40 18 03/12/19 10:45 18 03/12/19 09:30 20 03/12/19 08:30 18 03/12/19 07:45 37.3 C 75 18 101/61 03/12/19 06:20 20 03/12/19 05:15 18 03/12/19 04:15 37.1 C 76 16 101/63 03/12/19 03:30 18 03/12/19 02:30 18 03/12/19 01:15 16 03/12/19 00:15 36.9 C 82 18 108/69 03/11/19 23:30 16 03/11/19 22:56 17 03/11/19 22:05 18 03/11/19 21:10 18 03/11/19 20:00 36.7 C 78 20 117/70 03/11/19 19:20 36.7 C 20 03/11/19 19:12 73 03/11/19 19:11 80 113/69 03/11/19 19:07 73 03/11/19 19:02 72 03/11/19 19:01 78 118/71 03/11/19 18:57 69 03/11/19 18:52 67 03/11/19 18:51 69 116/72 03/11/19 18:50 20 03/11/19 18:47 70 03/11/19 18:42 74 03/11/19 18:41 75 116/73 03/11/19 18:37 68 03/11/19 18:32 68 03/11/19 18:31 68 112/63 03/11/19 18:27 68 03/11/19 18:22 72 03/11/19 18:21 67 112/67 03/11/19 18:20 36.7 C 20 03/11/19 18:17 69 03/11/19 18:12 74 03/11/19 18:11 69 113/65 03/11/19 18:10 20 03/11/19 18:07 73 03/11/19 18:02 74 03/11/19 18:01 75 108/57 L 03/11/19 18:00 22 03/11/19 17:57 74 03/11/19 17:52 78 03/11/19 17:51 79 105/56 L 03/11/19 17:50 20 03/11/19 17:47 79 03/11/19 17:42 83 03/11/19 17:41 82 110/65 03/11/19 17:40 20 03/11/19 17:37 81 03/11/19 17:32 81 03/11/19 17:31 80 106/58 L 03/11/19 17:27 80 03/11/19 17:22 75 03/11/19 17:20 36.6 C 73 22 100/55 L 03/11/19 17:17 72 03/11/19 17:15 76 104/55 L 03/11/19 17:12 76 03/11/19 17:10 79 18 03/11/19 17:07 81 03/11/19 17:06 82 101/59 L 03/11/19 17:03 82 108/55 L 03/11/19 17:02 82 03/11/19 16:07 81 03/11/19 16:02 78 03/11/19 15:58 78 123/72 03/11/19 15:57 78 Pulse Ox 03/12/19 12:35 95 03/12/19 11:40 97 03/12/19 10:45 97 03/12/19 09:30 96 03/12/19 08:30 97 03/12/19 07:45 96 03/12/19 06:20 98 03/12/19 05:15 96 03/12/19 04:15 97 03/12/19 03:30 97 03/12/19 02:30 98 03/12/19 01:15 97 03/12/19 00:15 98 03/11/19 23:30 98 03/11/19 22:56 98 03/11/19 22:05 100 03/11/19 21:10 100 03/11/19 20:00 100 03/11/19 19:20 03/11/19 19:12 100 03/11/19 19:11 03/11/19 19:07 99 03/11/19 19:02 98 03/11/19 19:01 03/11/19 18:57 99 03/11/19 18:52 99 03/11/19 18:51 03/11/19 18:50 03/11/19 18:47 99 03/11/19 18:42 98 03/11/19 18:41 03/11/19 18:37 98 03/11/19 18:32 98 03/11/19 18:31 03/11/19 18:27 98 03/11/19 18:22 98 03/11/19 18:21 03/11/19 18:20 03/11/19 18:17 97 03/11/19 18:12 97 03/11/19 18:11 03/11/19 18:10 03/11/19 18:07 96 03/11/19 18:02 97 03/11/19 18:01 03/11/19 18:00 03/11/19 17:57 96 03/11/19 17:52 96 03/11/19 17:51 03/11/19 17:50 03/11/19 17:47 96 03/11/19 17:42 95 03/11/19 17:41 03/11/19 17:40 03/11/19 17:37 96 03/11/19 17:32 96 03/11/19 17:31 03/11/19 17:27 95 03/11/19 17:22 95 03/11/19 17:20 03/11/19 17:17 94 03/11/19 17:15 03/11/19 17:12 93 03/11/19 17:10 94 03/11/19 17:07 95 03/11/19 17:06 03/11/19 17:03 03/11/19 17:02 96 03/11/19 16:07 100 03/11/19 16:02 100 03/11/19 15:58 03/11/19 15:57 100 Pain Intensity Abdomen: Pain Intensity: 2 Transfer of Care Handoff Completed per policy Notes Mental Status: alert / awake / arousable Patient Amnestic to Procedure: Yes Nausea / Vomiting: adequately controlled Pain: adequately controlled Airway Patency, RR, SpO2: stable & adequate BP & HR: stable & adequate Hydration State: stable & adequate Neuraxial Anesthesia: was administered and sensory block is resolving Anesthetic Complications: no major complications apparent
[2019-03-12] MEDS: IBUPROFEN 600 MG TAB PO PRN (18:53)
[2019-03-12] MEDS ORDERED: BISACODYL 5 MG TABEC PO SCH (20:00)
[2019-03-13] MEDS: OXYCODONE/ACETAMINOPHEN 5mg/325mg TAB PO PRN ×2 (04:30→08:59)
[2019-03-13] MEDS: IBUPROFEN 600 MG TAB PO PRN ×2 (04:30→08:58)
--- NOTE | 2019-03-13 07:02 | Obstetrical Progress Note ---
Date of Service <Shaq Hardin MD - Last Filed: 03/13/19 07:02> March 13, 2019 Assessment & Plan <Shaq Hardin MD - Last Filed: 03/13/19 07:02> (1) delivery delivered: 34 year old day 2 s/p C/S at 40 weeks 6 days for non reassuring heart tones during induction of labor for post dates. Vital Signs Reviewed and WNL Pain well controlled, incision clean dry and intact Hemoglobin 12.3 pre op; 11.2 post op bleeding light Blood type A+, GBS -, Rubella Immune Alvarado pulled yesterday, no issues with spontaneous voiding Ambulating well today. Breast feeding going okay so far encouraged to continue Subjective <Shaq Hardin MD - Last Filed: 03/13/19 07:02> Ambulation: ambulating normally Voiding: no voiding problems Passing Gas:: Yes Diet Tolerance:: regular diet Lochia:: Small Feeding Type:: breast feeding Current Pain Level(1-10): 6 Constitutional: no fever and no chills Respiratory: no cough and no dyspnea Cardiovascular: no chest pain and no dyspnea Gastrointestinal: + abdominal pain; no nausea and no vomiting Physical Exam <Shaq Hardin MD - Last Filed: 03/13/19 07:02> Vital Signs (Past 24 Hours) Last Vital Signs Temp 36.6 C 03/12/19 23:30 Pulse 69 03/12/19 23:30 Resp 18 03/12/19 23:30 BP 101/64 03/12/19 23:30 Pulse Ox 97 03/12/19 20:10 Constitutional well developed, well nourished, cooperative and comfortable; no acute distress Respiratory normal respiratory effort, lungs clear to auscultation Cardiovascular Rate/Rhythm: regular rate and regular rhythm Extremities: + edema (very mild pedal edema); no calf tenderness Gastrointestinal (Abdomen) Percussion/Palpation: + abdomen tender (Tender around incision) and abdomen soft (Around uterus) Skin no rashes, warm and dry Genitourinary OB Exam Abdomen: + fundal height (Uterus firm/nontender 1 cm below umbilicus) <Manju Allen MD, FACOG - Last Filed: 03/13/19 07:10> Co-Signing Physician Notes Resident Physician Supervision Note: I interviewed and examined the patient. Discussed with DrRuth [Name of resident] and agree with findings and plan as documented in the note. Any exceptions or clarifications are listed here: [None] Documented By: Manju Allen MD, FACOG Resident Activity Tracking <Shaq Hardin MD - Last Filed: 03/13/19 07:02> Resident Involvement: Resident Care Provided Care Provided: OB Delivery
[2019-03-13] MEDS: DOCUSATE SODIUM 100 MG CAP PO SCH (07:40)
[2019-03-13] MEDS: PRENATAL VITAMIN 1 TAB PO SCH (07:40)
[2019-03-13] MEDS: FERROUS SULFATE 325 MG TAB PO SCH (07:40)
[2019-03-13] MEDS: SIMETHICONE 80 MG CHEW PO SCH (07:40)
[2019-03-13 09:16] LABS: Hematocrit (blood only) 32.6 % (37-47); Hemoglobin 11.5 g/dL (12.0-16.0)
[2019-03-13] MEDS ORDERED: BISACODYL 10 MG SUPP PR PRN (17:04)
--- NOTE | 2019-03-16 11:51 | Discharge Summary ---
ADMISSION DIAGNOSIS: Postdates induction at 40-6/7 weeks. DISCHARGE DIAGNOSES: 1. Same. 2. intolerance to labor. PROCEDURES: Primary low transverse section. HISTORY OF PRESENT ILLNESS: Akila James is a 34-year-old white female, 1, para 0, here for induction of labor at 40-6/7 weeks for postdates. She had a Alvarado bulb placed last night that fell out. She noted some contractions about every 10 minutes apart last night after placement of the Alvarado bulb, but these have declined. She has felt good movement. No vaginal bleeding or leakage of fluid currently. The is complicated by GBS positive and GERD, for which she is taking Prilosec. For the rest of the patient's detailed history and physical, please see her dictated history and physical. On exam, the balloon was found to be resting in the vagina, was deflated and removed. Cervix was 4 cm dilated, 75% effaced, -1 station. Fetus was category 1. ASSESSMENT: This is a 34-year-old white female, 1, para 0, at 40-6/7 weeks, here for induction of labor. HOSPITAL COURSE: The patient had a category 1 fetus. The Alvarado bulb was removed. She was started on penicillin for group B strep positive, and Pitocin induction per protocol was started. After amniotomy for minimal amounts of clear fluid, the baby started having variables and earlies with contractions. These persisted throughout labor. She had 2 subsequent very long decels, approximately 8 minutes each that took a long time for recovery. This occurred x2. At that time, the patient's cervix was 5, 90, and -2, had been turned off. The fetus had recovered to a baseline of 125 with moderate variability. I discussed the situation with the patient and her significant other, and we have elected to proceed with delivery for nonreassuring testing given that we were remote from delivery. The patient underwent a primary low transverse section without difficulty. Estimated blood loss 700 mL. Findings at the time of surgery revealed a normal uterus, tubes, and ovaries bilaterally. There was a female infant in occiput transverse presentation to the left. No nuchal cord or any cord was noted. Clear fluid was noted on hysterotomy. Apgars were 9 and 9. The patient's postoperative course was uncomplicated. She tolerated a regular diet, ambulated without difficulty, voided after the removal of her Alvarado catheter, had her pain well controlled on oral pain medications. Her discharge H and H were 11.5 and 32.6. She was discharged home on postoperative day #2/3 with Percocet and ibuprofen for pain and to return in 6 weeks for postoperative check.
== END 2019-03-13 11:50 | disposition home or self-care (01) | DRG 788 ==
LOC: 4S1 07:45 → 4S2 19:20